=== PATIENT | male | born 1950 | race Caucasian/White ===

== ENCOUNTER → 2016-09-28 | Outpatient (CLI) | payer MEDICARE, OTHER ==
[~2016-09-28] VITALS: Ht 182.9 cm; Wt 99.8 kg
[~2016-09-28] MED LIST: REGADENOSON 0.4 MG/5 ML SYR (LEXISCAN) IV ONE
[2016-09-28] MEDS: CATHETER FLUSH 10 ML SYR IV PRN (08:31)
[2016-09-28 09:20] VITALS: BP 169/74
[2016-09-28] MEDS: REGADENOSON 0.4 MG/5 ML SYR (LEXISCAN) IV ONE (09:22)
[2016-09-28 09:23] VITALS: BP 156/74
[2016-09-28 09:25] VITALS: BP 182/75
[2016-09-28 09:27] VITALS: BP 173/82
--- NOTE | 2016-09-29 14:05 | STRESS TEST ---
PROCEDURE PHYSICIAN: LUPILLO GONZALES DATE OF PROCEDURE: 09/28/2016 RESTING AND POST REGADENOSON TECHNETIUM 99M TETROFOSMIN SPECT CT IMAGING: ORDERING PHYSICIAN: Dr. Uriel Avendano. PRIMARY PHYSICIAN: Dr. Faisal Kaufman. CLINICAL DIAGNOSES: Abnormal electrocardiogram. Baseline images were carried out after injection of 10.5 mCi of technetium 99m tetrofosmin. This was followed by 0.4 mg of regadenoson and 33 mCi of technetium 99m tetrofosmin for stress imaging. The electrocardiogram showed sinus rhythm with isolated premature ventricular contractions. The electrocardiogram did not change significantly with the regadenoson infusion. Following regadenoson infusion, the patient had some coughing and mild shortness of breath, which resolved in a few minutes. Review of images at rest and following stress, does not indicate any significant perfusion defects consistent with significant myocardial ischemia or infarction. Gated images show normal global left ventricular systolic function with normal regional wall motion. Left ventricular ejection fraction is calculated to be 58%. Left ventricular end-diastolic volume is 139 mL. TID is absent (1.15). CONCLUSIONS: 1. No evidence of significant myocardial ischemia or infarction on this study. 2. Normal regional wall motion. 3. Normal global left ventricular systolic function with a calculated ejection of 58%. 4. Mild to moderate cardiomegaly. Job ID: [id number] Dictated Date: 09/29/2016 13:01:16 Manager Of Administration Date: 09/29/2016 14:00:59 / wil
== END ==
LOC: CARD 08:14
PROVIDERS: ATTEND Internal Medicine Cardiovascular Disease
DX: I10 Essential (primary) hypertension (principal); R94.31 Abnormal electrocardiogram [ECG] [EKG]
CPT/HCPCS: 78452; 93017

== ENCOUNTER → 2016-10-11 | Outpatient (CLI) | payer MEDICARE, OTHER ==
[~2016-10-11] MED LIST changes: -REGADENOSON 0.4 MG/5 ML SYR (LEXISCAN) IV ONE; +RT-ALBUTEROL SULF 2.5 MG/3 ML PRE-MIX VIAL INH ONE
== END ==
LOC: RT 13:56
PROVIDERS: ATTEND Internal Medicine Critical Care Medicine
DX: J44.9 Chronic obstructive pulmonary disease, unspecified (principal); F17.200 Nicotine dependence, unspecified, uncomplicated
CPT/HCPCS: 94060; 94640; 94726; 94729

== ENCOUNTER 2016-10-17 13:00 | Outpatient (CLI) | payer MEDICARE, OTHER | END 2016-10-17 13:35 | disposition home or self-care (01) | LOC: SLEEP 13:00 | PROVIDERS: ATTEND Internal Medicine Critical Care Medicine | DX: G47.10 Hypersomnia, unspecified (principal); J44.9 Chronic obstructive pulmonary disease, unspecified; F17.200 Nicotine dependence, unspecified, uncomplicated ==

== ENCOUNTER → 2016-11-22 | Outpatient (CLI) | payer MEDICARE, OTHER ==
[~2016-11-22] MED LIST changes: +CATHETER FLUSH 10 ML SYR IV PRN; +IOHEXOL 350 MG/ML 100 ML (OMNIPAQUE 350) VIAL IV ONE; +NS 100 ML (IVPB) BAG IV ONE; -RT-ALBUTEROL SULF 2.5 MG/3 ML PRE-MIX VIAL INH ONE
[2016-11-22 09:17] LABS: BLOOD UREA NITROGEN 15 MG/DL (7-18); BUN/CREATININE RATIO 15; CREATININE SERUM 0.97 MG/DL (0.60-1.30); GFR ESTIMATED > 60
--- NOTE | 2016-11-22 11:45 | Diagnostic Imaging Report ---
EXAMINATION: CT angiogram of the neck. INDICATION: Stenosis of the left carotid artery. FINDINGS: There is a calcified plaque at the carotid bifurcation and a noncalcified plaque involving 1-2 cm of the proximal internal carotid artery on the left side associated with an estimated underlying stenosis of approximately 70-80% in the distal aspect of this plaque. More proximally, the left common carotid artery is patent to its common origin variation with the brachiocephalic artery. The left external carotid artery is patent. The brachiocephalic artery proper is patent. The right subclavian artery is patent. The right common carotid artery is also patent. There is calcified plaque at the carotid bifurcation with an estimated underlying stenosis of about 40%. The right external carotid artery is patent. The visualized portions of the proximal intracranial major vessels demonstrate no definite abnormality. The vertebral arteries are codominant with no significant stenosis. The soft tissue structures in the neck appear grossly unremarkable. No lymphadenopathy or mass is identified. Sections in the upper lungs demonstrate emphysematous changes. The osseous structures demonstrate generally mild degenerative changes with posterior osteophytes noted at the C6-7 level. IMPRESSION: 1. There is mixed plaque at the left proximal internal carotid artery with an underlying stenosis of up to 70-80%. 2. There is atherosclerotic plaque at the right internal carotid bifurcation with an underlying stenosis in the proximal right ICA up to 40%. The report was faxed to Victorina/SHWETA the office of Dr. Hall by VINCENT at 11:45 AM. Dictated by: Dictated on workstation # [id number]
== END ==
LOC: RAD 08:42
PROVIDERS: ATTEND Internal Medicine Cardiovascular Disease
DX: I65.23 Occlusion and stenosis of bilateral carotid arteries (principal)
CPT/HCPCS: 36415; 70498; 82565; 84520

== ENCOUNTER 2016-12-04 21:00 | Outpatient (CLI) | payer MEDICARE, OTHER | END 2016-12-05 06:34 | disposition home or self-care (01) | LOC: SLEEP 21:00 | PROVIDERS: ATTEND Internal Medicine Critical Care Medicine | DX: G47.33 Obstructive sleep apnea (adult) (pediatric) (principal) | CPT/HCPCS: 95810 ==

== ENCOUNTER 2017-10-16 09:21 | Outpatient (RCR) | payer MEDICARE, OTHER | END 2017-10-16 10:26 | disposition home or self-care (01) | PROVIDERS: ATTEND Orthopaedic Surgery | DX: M75.101 Unspecified rotator cuff tear or rupture of right shoulder, not specified as traumatic (principal) ==

== ENCOUNTER → 2017-10-27 | Outpatient (CLI) | payer MEDICARE, OTHER ==
--- NOTE | 2017-10-27 12:48 | Diagnostic Imaging Report ---
PROCEDURE: MRI right joint upper extremity without contrast. TECHNIQUE: Multiplanar, multisequence non contrast-enhanced MRI of the right upper extremity was accomplished. INDICATION: Chronic right shoulder pain. FINDINGS: There is [id number] amount of fluid within the right shoulder joint. There is marked narrowing of the glenohumeral joint space with diffuse articular cartilage thinning. In addition, there is a large subchondral cyst along the superior margin of the glenoid process with diffuse irregularity of the superior cartilaginous labrum with abnormal signal extending into the biceps anchor. Long head of biceps tendon appears to be intact. There are prominent osteophytes at the level of the acromioclavicular joint with subchondral cyst also present. Inferior spurring does result in impingement upon the underlying rotator cuff. There is mild increased T2 signal near the musculotendinous junction of the supraspinatus tendon without definite full thickness tear. No bone marrow signal is seen to indicate a fracture. IMPRESSION: Marked acromioclavicular and glenohumeral degenerative change with diffuse articular cartilage loss and probable diffuse degeneration of the superior cartilaginous labrum. In addition, osteophyte of the acromioclavicular joint result in narrowing of the rotator cuff space with probable chronic tendinitis or partial tear at the musculotendinous junction of supraspinatus muscle. No full-thickness rotator cuff tear or retraction is identified. Dictated by: Dictated on workstation # [id number]
== END ==
LOC: RAD 10:02
PROVIDERS: ATTEND Nurse Practitioner Family
DX: S46.011A Strain of muscle(s) and tendon(s) of the rotator cuff of right shoulder, initial encounter (principal); M19.011 Primary osteoarthritis, right shoulder; M94.8X1 Other specified disorders of cartilage, shoulder; M25.811 Other specified joint disorders, right shoulder
CPT/HCPCS: 73221

== ENCOUNTER → 2017-11-09 | Outpatient (CLI) | payer MEDICARE, OTHER ==
--- NOTE | 2017-11-09 10:03 | Diagnostic Imaging Report ---
PROCEDURE: US Doppler abd complete. TECHNIQUE: Spectral and color flow Doppler imaging was performed of the abdomen. INDICATION: Hypertension. FINDINGS: The right kidney measures 12.1 x 6.5 x 6.5 cm and left kidney measure 11.5 x 6.1 x 6.5 cm. The cortical thickness and echogenicity is normal. No calculi or hydronephrosis is identified. Renal Doppler was performed. Right proximal, mid and distal renal arteries demonstrate normal velocities. Renal artery to aorta ratios on the right are unremarkable. Waveforms are unremarkable. On the left, the proximal and mid renal artery is obscured. Distal renal artery shows normal velocity and normal ratio. Waveforms are unremarkable. Urinary bladder is unremarkable. IMPRESSION: Essentially unremarkable renal ultrasound with renal Doppler although the proximal and mid left renal artery was obscured. Dictated by: Dictated on workstation # [id number]
== END ==
LOC: RAD 08:42
PROVIDERS: ATTEND Physician Assistant
DX: I10 Essential (primary) hypertension (principal); G47.33 Obstructive sleep apnea (adult) (pediatric); I49.5 Sick sinus syndrome
CPT/HCPCS: 93975

== ENCOUNTER → 2018-04-23 | Outpatient (CLI) | payer MEDICARE, OTHER | LOC: LAB 09:17 | PROVIDERS: ATTEND Physician Assistant | DX: I10 Essential (primary) hypertension (principal); R06.00 Dyspnea, unspecified; G47.33 Obstructive sleep apnea (adult) (pediatric); I49.5 Sick sinus syndrome | CPT/HCPCS: 36415; 84443 ==

== ENCOUNTER 2018-04-30 08:12 | Outpatient (RCR) | payer MEDICARE, OTHER ==
[2018-06-12] MEDS ORDERED: MONT10TA24 PO (07:39)
[2018-06-12] MEDS ORDERED: GABA-488 PO (07:39)
[2018-06-12] MEDS ORDERED: LISI-552 PO (07:39)
[2018-06-12] MEDS ORDERED: MULT-974 PO (07:39)
[2018-06-12] MEDS ORDERED: LOSA100T8 PO (07:39)
[2018-06-12] MEDS ORDERED: TAMS0.4C2 PO (07:39)
[2018-06-12] MEDS ORDERED: CHLO25TA22 PO (07:39)
[2018-06-12] MEDS ORDERED: ATOR40TA70 PO (07:39)
[2018-06-13] MEDS ORDERED: CEFU500T63 PO (07:47)
[2018-07-03] MEDS ORDERED: APIX5TAB4 PO (07:42)
[2018-07-03] MEDS ORDERED: METO-387 PO (07:42)
[2018-07-03] MEDS ORDERED: MULT-1061 PO (07:42)
[2018-07-03] MEDS ORDERED: AMLO10TA6 PO (07:42)
[2018-07-03] MEDS ORDERED: NITR1PAT5 TD (09:17)
== END 2018-07-29 | disposition home or self-care (01) ==
LOC: CARD 08:12
PROVIDERS: ATTEND Physician Assistant
DX: I10 Essential (primary) hypertension (principal); R06.00 Dyspnea, unspecified; G47.33 Obstructive sleep apnea (adult) (pediatric); I49.5 Sick sinus syndrome
CPT/HCPCS: 93225; 93226

== ENCOUNTER → 2018-05-08 | Outpatient (CLI) | payer MEDICARE, OTHER ==
[~2018-05-08] MED LIST changes: -IOHEXOL 350 MG/ML 100 ML (OMNIPAQUE 350) VIAL IV ONE; -NS 100 ML (IVPB) BAG IV ONE; +REGADENOSON 0.4 MG/5 ML SYR (LEXISCAN) IV ONE
[2018-05-08 10:07] VITALS: BP 150/85
[2018-05-08 10:21] VITALS: BP 161/64
--- NOTE | 2018-05-09 07:20 | STRESS TEST ---
DATE OF SERVICE: 05/08/2018 EXERCISE AND LEXISCAN MYOVIEW STRESS TEST REPORT Baseline heart rate is 41. Baseline blood pressure is 150/85. Baseline EKG is sinus bradycardia with no ischemic changes. In summary, the patient was injected with 10.52 mCi of technetium-99 Myoview and the resting images were obtained. Then, the patient started exercising with a baseline heart rate, blood pressure and EKG mentioned above. After 4 minutes and 15 seconds, the patient was unable to exercise any further, achieved maximum heart rate of 106, which is submaximal stress test, test converted to Lexiscan Myoview stress test. The patient received 0.4 mg of Lexiscan followed by 27.4 mCi of technetium-99 Myoview. Throughout the test, there were no EKG changes. The resting and stress images were reviewed and compared in the short axis, horizontal long axis and vertical long axis views. Review of the images showed good radiotracer uptake with no significant ischemia or infarction on SPECT images. CONCLUSION: 1. Baseline sinus tachycardia, the patient was unable to achieve target heart rate with exercise, was able to exercise for 4 minutes and 15 seconds on James protocol. 2. The patient tolerated the Lexiscan well. 3. No significant ischemia or infarction on SPECT images. 4. Normal left ventricular size with normal contractility and calculated ejection fraction of 53%. Job ID: [id number] DocumentID: [id number] Dictated Date: 05/09/2018 06:43:27 Systems Security Analyst Date: 05/09/2018 07:20:45 Dictated By: HUA MARKS MD
== END ==
LOC: CARD 07:44
PROVIDERS: ATTEND Physician Assistant
DX: I49.5 Sick sinus syndrome (principal); R06.00 Dyspnea, unspecified; I10 Essential (primary) hypertension; G47.33 Obstructive sleep apnea (adult) (pediatric)
CPT/HCPCS: 78452; 93017

== ENCOUNTER → 2018-05-23 | Outpatient (CLI) | payer MEDICARE, OTHER | LOC: CARD 12:41 | PROVIDERS: ATTEND Physician Assistant | DX: R06.00 Dyspnea, unspecified (principal); I10 Essential (primary) hypertension; G47.33 Obstructive sleep apnea (adult) (pediatric); I49.5 Sick sinus syndrome; I08.1 Rheumatic disorders of both mitral and tricuspid valves | CPT/HCPCS: 93306 ==

== ENCOUNTER 2018-06-12 06:35 | Day surgery (SDC) | payer MEDICARE, OTHER ==
[2018-06-12] VITALS (13 sets, daily range): BP systolic 133–160; BP diastolic 68–95
[~2018-06-12] VITALS: Ht 182.9 cm; Wt 99.8 kg
[2018-06-12] MEDS ORDERED: LIDOCAINE 1% INJ 20 ML 20 ML VIAL ONE (06:46)
[2018-06-12] MEDS ORDERED: HEParin (CATH LAB) 1,000 ML IV ONE (06:46)
[2018-06-12] MEDS ORDERED: NS IV 1000 ML 1,000 ML IV ONE (06:46)
[2018-06-12] MEDS ORDERED: BACITRACIN INJECTION 50,000 UNIT, SODIUM CHLORIDE 0.9% IRRIGATIO 500 ML IR NR ×2 (07:07)
[2018-06-12 07:17] LABS: HEMOGLOBIN 16.2 G/DL (13.3-17.7); MEAN PLATELET VOLUME 10.1 FL (7.4-10.4); RED BLOOD COUNT 5.07 10^6/uL (4.35-5.85); RED CELL DISTRIBUTION WIDTH 13.9 % (10.0-14.5); WHITE BLOOD COUNT 8.9 10^3/uL (4.3-11.0)
[2018-06-12 07:34] LABS: ALBUMIN 4.4 GM/DL (3.2-4.5); BILIRUBIN,TOTAL 0.5 MG/DL (0.1-1.0); CALCIUM 9.3 MG/DL (8.5-10.1); CREATININE SERUM 1.21 MG/DL (0.60-1.30); POTASSIUM 3.8 MMOL/L (3.6-5.0); TOTAL PROTEIN 6.9 GM/DL (6.4-8.2)
--- NOTE | 2018-06-12 07:34 | Cardiac Procedure Note-CS/ASA ---
Pre-Procedure Note Pre-Op Procedure Note H&P Reviewed The H&P was reviewed, patient examined and no changes noted. Date H&P Reviewed: Jun 12, 2018 Time H&P Reviewed: 07:33 Conscious Sedation Pre-Proced ASA Score 3 For ASA 3 and 4: Consider anesthesia and medical clearance. Also, for patients with a history of failed moderate sedation consider anesthesia. Airway Lungs Heart ASA score ASA 1: a normal healthy patient ASA 2: a patient with a mild systemic disease (mid diabetes, controlled hypertension, obesity x ASA 3: a patient with a severe systemic disease that limits activity (angina , COPD, prior Myocardial infarction) ASA 4: a patient with an incapacitating disease that is a constant threat to life (CHF, renal failure) ASA 5: a moribund patient not expected to survive 24 hrs. (ruptured aneurysm) ASA 6: a declared brain patient whose organs are being harvested. For emergent operations, add the letter E after the classification Mallampati Classification Grade 3 Sedation Plan Analgesia, Amnesia, Plan communicated to team members, Discussed options with patient/fam, Discussed risks with patient/fam The patient is an appropriate candidate to undergo the planned procedure, sedation, and anesthesia. The patient immediately re-assessed prior to indication. HUA MARKS MD Jun 12, 2018 07:34
--- NOTE | 2018-06-12 07:35 | Diagnostic Imaging Report ---
Clinical indication: Precath for permanent pacemaker. Exam: Portable chest x-ray upright view. Comparisons: None. Findings: Lungs/pleura: There is mild left basilar atelectasis. Otherwise, lungs are clear. There is no pneumothorax. There is no pleural effusion. Mediastinum: Unremarkable. Pulmonary vasculature: Unremarkable. Heart: Cardiac silhouette is within normal limits for portable projection. Bones/extrathoracic soft tissue: There are degenerative spurs involving the thoracic spine. Impression: There is mild left basilar atelectasis. Otherwise, there is no radiographic evidence of acute cardiopulmonary process. Dictated by: Dictated on workstation # [id number]
[2018-06-12] MEDS ORDERED: ATOR40TA70 PO (07:39)
[2018-06-12] MEDS ORDERED: GABA-488 PO (07:39)
[2018-06-12] MEDS ORDERED: MONT10TA24 PO (07:39)
[2018-06-12] MEDS ORDERED: CHLO25TA22 PO (07:39)
[2018-06-12] MEDS ORDERED: TAMS0.4C2 PO (07:39)
[2018-06-12] MEDS ORDERED: MULT-974 PO (07:39)
[2018-06-12] MEDS ORDERED: LISI-552 PO (07:39)
[2018-06-12] MEDS ORDERED: LOSA100T8 PO (07:39)
[2018-06-12] MEDS ORDERED: MIDAZOLAM 5 MG/5 ML (VERSED) VIAL ONE (08:49)
[2018-06-12] MEDS ORDERED: fentaNYL INJECTION 100 MCG/2 ML AMP ONE ×2 (08:49→09:32)
[2018-06-12] MEDS ORDERED: ceFAZolin 1,000 MG/10 ML (ANCEF) VIAL ONE (08:49)
[2018-06-12] MEDS ORDERED: MIDAZOLAM 2 MG/2 ML (VERSED) VIAL ONE (09:32)
[2018-06-12] MEDS ORDERED: NEO/POLY/BAC (NEOSPORIN) OINT 15 GM TUBE ONE (10:28)
--- NOTE | 2018-06-12 10:38 | Permanent Pacemaker Implant ---
Dual Chamber Pacemaker Implant PROCEDURE PHYSICIAN: Hua Hall DUAL CHAMBER PACEMAKER IMPLANTATION: DATE OF PROCEDURE: 06/12/18 REFERRING PHYSICIAN: Dr. Faisal Kaufman INDICATION: PREOPERATIVE DIAGNOSIS: Sinus node dysfunction POSTOPERATIVE DIAGNOSIS: Sinus node dysfunction HISTORY: Sinus node dysfunction, 67 years old gentleman with history of sinus node dysfunction and bradycardia. Has been having dizziness and lightheadedness, Holter monitor showed episodes of bradycardia down to the 30s. Decided to proceed with dual-chamber pacemaker implant, Dual-chamber permanent pacemaker was recommended. PROCEDURE PERFORMED: 1. Dual-chamber permanent pacemaker implantation. 2. Fluoroscopy. 3. Central venous access. ANESTHESIA: Local anesthesia, conscious sedation. COMPLICATIONS: None. ESTIMATED BLOOD LOSS:20 mL. SPECIMENS: None. ORAL ANTICOAGULATION: None. FLUOROSCOPY TIME: 8.8 min FLUOROSCOPY DOSE: 67 mGy CONTRAST DOSE: 0 ml PROCEDURE DETAILS: The patient is a 67 male and after all of the patients questions were answered, the patient was brought to the EP Lab. The patient's left chest was prepped and draped in sterile fashion. A 2 inch horizontal incision was made 1 cm below the clavicle and dissection carried down to the pectoralis fascia. Using the modified Seldinger technique and under fluoroscopy guidance, the anterior aspect of the left axillary vein was accessed 2 times. The J wires were secured to the drapes with a mosquito clamp. A 7-[place] Island[place] sheath was introduced over one of the J-wires. The RV lead was then inserted. The RV lead was directed across the tricuspid valve to the apical septal portion of the right ventricle. The position was checked in SPANISH and BA views. The screw was deployed and the lead connected to the sas clinical programmer. Close sensing and pacing thresholds were obtained. Diaphragmatic pacing was ruled out. The lead was secured with 2-0 silk ties to the underlying muscle and fascia. Next, a 7-[place] Island[place] sheath was introduced through the remaining J-wire. An atrial lead was then introduced and guided to the level of the right appendage. The screw was deployed and the lead was connected to the interrogator. Good sensing and pacing thresholds were obtained. Diaphragmatic pacing was ruled out. I had to readjust the lead position 3 times due to the fact that operative removal of the stylet the sensitivity was dropping. After acquiring good sensing and capture activity at the end, The leads were secured with 2-0 silk ties to the underlying muscle and fascia. The leads were connected to the device in a hermetic fashion. The device and leads were placed in the pocket. Aggressive irrigation with saline solution was done. The device was secured to the underlying muscle and fascia with a 2-0 silk tie. interrogation of the device revealed good integrity of all the leads and good connections. The wound was then closed using 2 layers. The first layer was interrupted 2-0 absorbable Vicryl suture. The last layer was a single subcuticular layer with 4- 0 Vicryl suture. Half inch Steri-Strips and a small dressing were then applied to the wound. The patient tolerated the procedure well and was returned to the recovery room in stable condition with stable vital signs. DEVICE INFORMATION: AMENA GARCIA, SN# [id number] RA LEAD: [id number] RV LEAD: [id number] PER-OPERATIVE DEVICE INTERROGATION: Good sensing and capture IMMEDIATE POSTOPERATIVE DEVICE INTERROGATION: Stimulation threshold Right Atrium, bipolar, pulse width 0.5 ms, voltage 0.8, current 0, impedance 659 , P-wave 1.2 Right ventricle, bipolar, pulse width 0.5 ms, voltage 0.4, impedance 1040, R wave 7.9 PLAN: The patient transferred to the ICU. We will continue with two more doses of IV antibiotics. We will check a chest x-ray and interrogate the device in the morning. The patient will continue on oral antibiotics for 5 days. CONCLUSION: Successful dual-chamber pacemaker implantation with no complication FINAL DIAGNOSIS: Sinus node dysfunction Permanent pacemaker implant Hypertension Hyperlipidemia HUA HALL MD Jun 12, 2018 10:38
[2018-06-12] MEDS ORDERED: NS IV 1000 ML 1,000 ML IV SCH (10:40)
[2018-06-12] MEDS ORDERED: PATIENT MAY USE OWN MEDS, ALL PO SCH (10:45)
[2018-06-12] MEDS: LOSARTAN 100 MG (COZAAR) TABLET PO SCH (12:21)
[2018-06-12] MEDS: CHLORTHALIDONE 25 MG (HYGROTON) TABLET PO SCH (12:22)
[2018-06-12] MEDS: lisINopril 20 MG (PRINIVIL) TABLET PO SCH (12:22)
[2018-06-12] MEDS: GABAPENTIN 300 MG (NEURONTIN) CAP PO SCH ×2 (12:23→20:29)
[2018-06-12] MEDS: ceFAZolin INJECTION 1,000 MG in NS (IVPB) 50 ML IV SCH ×2 (12:23→21:43)
--- NOTE | 2018-06-12 13:05 | Diagnostic Imaging Report ---
INDICATION: Arrhythmia. Portable chest at 11:55 a.m. FINDINGS: There is a dual-chamber pacemaker. Heart size and pulmonary vascularity are normal. Lungs are clear. There are no effusions or pneumothoraces. IMPRESSION: No acute abnormalities in the chest. Dictated by: Dictated on workstation # [id number]
[2018-06-12] MEDS ORDERED: TAMSULOSIN 0.4 MG (FLOMAX) CAP PO SCH (18:00)
[2018-06-12] MEDS ORDERED: MONTELUKAST 10 MG (SINGULAIR) TAB PO SCH (21:00)
[2018-06-12] MEDS ORDERED: ATORVASTATIN 40 MG (LIPITOR) TABLET PO SCH (21:00)
[2018-06-13] VITALS: BP 157/79
[2018-06-13 04:34] VITALS: BP 153/84
[2018-06-13] MEDS: ceFAZolin INJECTION 1,000 MG in NS (IVPB) 50 ML IV SCH (05:30)
[2018-06-13] MEDS ORDERED: CEFU500T63 PO (07:47)
--- NOTE | 2018-06-13 07:50 | Cardiology Progress Note ---
Subjective Date Seen by Provider: Jun 13, 2018 Time Seen by Provider: 07:48 Subjective/Events-last exam Patient is feeling better, did not sleep well last night. Site is healing well , chest x-ray is normal Review of Systems General: No Chills, No Night Sweats, No Fatigue, No Malaise, No Appetite, No Other HEENT: No Head Aches, No Visual Changes, No Eye Pain, No Ear Pain, No Dysphasia , No Sinus Congestion, No Post Nasal Drip, No Sore Throat, No Other Pulmonary: No Dyspnea, No Cough, No Pleuritic Chest Pain, No Other Cardiovascular: No: Chest Pain, Palpitations, Orthopnea, Paroxysmal Noc. Dyspnea, Edema, Lt Headedness, Other Objective-Cardiology Exam Last Set of Vital Signs Vital Signs 06/13/18 04:34 Temp 97.1 Pulse 60 Resp 14 B/P (MAP) 153/84 (107) Pulse Ox 93 O2 Delivery Nasal Cannula O2 Flow Rate 2.00 Capillary Refill : I&O Intake and Output 06/13/18 00:00 Intake Total 1120 ml Balance 1120 ml Intake IV Total 1120 ml General: Alert, Oriented X3, Cooperative HEENT: Atraumatic, PERRLA Neck: Supple, No JVD, No Thyromegaly Lungs: Clear to Auscultation, Normal Air Movement Heart: Regular Rate, Normal S1, Normal S2, No Murmurs Abdomen: Normal Bowel Sounds, Soft, No Tenderness, No Hepatosplenomegaly, No Masses Extremities: No Clubbing, No Cyanosis, No Edema, Normal Pulses, No Tenderness/ Swelling Skin: No Rashes, No Breakdown, No Significant Lesion Neuro: Normal Gait, Normal Speech, Strength at 5/5 X4 Ext, Normal Tone, Sensation Intact Psych/Mental Status: Mental Status NL, Mood NL A/P-Cardiology Admission Diagnosis Sick sinus syndrome Cardiac pacemaker Dizziness and fatigue Hypertension Hyperlipidemia Assessment/Plan Sick sinus syndrome, severe bradycardia, symptomatic with fatigue and dizziness. Status post dual-chamber pacemaker implantation, no complication. Doing well. Generalized fatigue and loss of energy, probably secondary to bradycardia. Monitor Hypertension, restart home medication discharge Hyperlipidemia, continue on current medication Patient was started on Ceftin for 5 days HUA MARKS MD Jun 13, 2018 07:50
[2018-06-13 08:00] VITALS: BP 158/86
[2018-06-13] MEDS ORDERED: MULTIVIT W/MINERALS TAB (THERAGRAN M) PO SCH (08:00)
[2018-06-13] MEDS: lisINopril 20 MG (PRINIVIL) TABLET PO SCH (08:03)
[2018-06-13] MEDS: GABAPENTIN 300 MG (NEURONTIN) CAP PO SCH (08:03)
[2018-06-13] MEDS: LOSARTAN 100 MG (COZAAR) TABLET PO SCH (08:04)
[2018-06-13] MEDS: CHLORTHALIDONE 25 MG (HYGROTON) TABLET PO SCH (08:05)
[2018-06-13] MEDS ORDERED: NON-FORMULARY MEDICATION 1 EA EA (Chlorthalidone 25 MG) PO SCH (09:00)
[2018-06-13] MEDS ORDERED: LOSARTAN 100 MG (COZAAR) TABLET PO SCH (09:00)
[2018-06-13] MEDS ORDERED: MONTELUKAST 10 MG (SINGULAIR) TAB PO SCH (09:00)
== END 2018-06-13 09:47 | disposition home or self-care (01) ==
LOC: CATH 06:35 → ICU 11:20 → CATH 06-13 09:47
PROVIDERS: ATTEND Internal Medicine Cardiovascular Disease
DX: I49.5 Sick sinus syndrome (principal); I10 Essential (primary) hypertension; G47.33 Obstructive sleep apnea (adult) (pediatric); J44.9 Chronic obstructive pulmonary disease, unspecified; R06.09 Other forms of dyspnea; F17.210 Nicotine dependence, cigarettes, uncomplicated; Z82.49 Family history of ischemic heart disease and other diseases of the circulatory system; Z79.899 Other long term (current) drug therapy
CPT/HCPCS: 33208; 36415; 71045; 80053; 85027; 85610; 85730; 87081

== ENCOUNTER 2018-07-03 06:48 | Day surgery (SDC) | payer MEDICARE, OTHER ==
[~2018-07-03] VITALS: Ht 182.9 cm; Wt 99.8 kg
[2018-07-03] VITALS (10 sets, daily range): BP systolic 114–146; BP diastolic 62–79
[~2018-07-03 06:48] MED LIST changes: +ATOR40TA70 PO; -CATHETER FLUSH 10 ML SYR IV PRN; +CEFU500T63 PO; +CHLO25TA22 PO; +GABA-488 PO; +LISI-552 PO; +LOSA100T8 PO; +MONT10TA24 PO; +MULT-974 PO; -REGADENOSON 0.4 MG/5 ML SYR (LEXISCAN) IV ONE; +TAMS0.4C2 PO
[2018-07-03] MEDS ORDERED: LIDOCAINE 1% INJ 20 ML 20 ML VIAL ONE (06:55)
[2018-07-03] MEDS ORDERED: NS IV 1000 ML 1,000 ML ONE (06:55)
[2018-07-03] MEDS ORDERED: HEParin (CATH LAB) 2,000 ML IV ONE (06:55)
[2018-07-03] MEDS ORDERED: NS IV 1000 ML 1,000 ML IV SCH ×2 (07:00→09:03)
[2018-07-03 07:25] LABS: BILIRUBIN,URINE NEGATIVE (NEGATIVE); CLARITY,URINE CLEAR; COLOR,URINE YELLOW; GLUCOSE, URINE (UA) NEGATIVE (NEGATIVE); HEMOGLOBIN 16.9 G/DL (13.3-17.7); KETONES,URINE NEGATIVE (NEGATIVE); LEUKOCYTE ESTERASE ,URINE 1+ (NEGATIVE); MEAN PLATELET VOLUME 10.3 FL (7.4-10.4); NITRITE,URINE NEGATIVE (NEGATIVE); PH,URINE 6 (5-9); PROTEIN,URINE NEGATIVE (NEGATIVE); RED BLOOD COUNT 5.49 10^6/uL (4.35-5.85); RED CELL DISTRIBUTION WIDTH 13.8 % (10.0-14.5); UROBILINOGEN,URINE NORMAL (NORMAL); WHITE BLOOD COUNT 8.7 10^3/uL (4.3-11.0)
[2018-07-03 07:32] LABS: BACTERIA,URINE NEGATIVE /HPF; WBC,URINE 0-2 /HPF
[2018-07-03 07:39] LABS: PROTHROMBIN TIME PATIENT 12.7 SEC (12.2-14.7)
[2018-07-03] MEDS ORDERED: APIX5TAB4 PO (07:42)
[2018-07-03] MEDS ORDERED: MULT-1061 PO (07:42)
[2018-07-03] MEDS ORDERED: AMLO10TA6 PO (07:42)
[2018-07-03] MEDS ORDERED: METO-387 PO (07:42)
[2018-07-03] MEDS ORDERED: fentaNYL INJECTION 100 MCG/2 ML AMP ONE (07:45)
[2018-07-03] MEDS ORDERED: MIDAZOLAM 5 MG/5 ML (VERSED) VIAL ONE (07:45)
--- NOTE | 2018-07-03 08:05 | Cardiac Procedure Note-CS/ASA ---
Pre-Procedure Note Pre-Op Procedure Note H&P Reviewed The H&P was reviewed, patient examined and no changes noted. Date H&P Reviewed: Jul 03, 2018 Time H&P Reviewed: 08:05 Conscious Sedation Pre-Proced Time 08:05 ASA Score 3 For ASA 3 and 4: Consider anesthesia and medical clearance. Also, for patients with a history of failed moderate sedation consider anesthesia. Airway Lungs Heart ASA score ASA 1: a normal healthy patient ASA 2: a patient with a mild systemic disease (mid diabetes, controlled hypertension, obesity x ASA 3: a patient with a severe systemic disease that limits activity (angina , COPD, prior Myocardial infarction) ASA 4: a patient with an incapacitating disease that is a constant threat to life (CHF, renal failure) ASA 5: a moribund patient not expected to survive 24 hrs. (ruptured aneurysm) ASA 6: a declared brain patient whose organs are being harvested. For emergent operations, add the letter E after the classification Mallampati Classification Grade 3 Sedation Plan Analgesia, Amnesia, Plan communicated to team members, Discussed options with patient/fam, Discussed risks with patient/fam The patient is an appropriate candidate to undergo the planned procedure, sedation, and anesthesia. The patient immediately re-assessed prior to indication. HUA MARKS MD Jul 03, 2018 08:05
[2018-07-03 08:18] LABS: ALANINE AMINOTRANSFERASE 21 U/L (0-55); ALBUMIN 4.1 GM/DL (3.2-4.5); ALKALINE PHOSPHATASE 73 U/L (40-136); BILIRUBIN,TOTAL 0.3 MG/DL (0.1-1.0); BUN/CREATININE RATIO 18; CALCIUM 9.3 MG/DL (8.5-10.1); CARBON DIOXIDE 24 MMOL/L (21-32); CHLORIDE 106 MMOL/L (98-107); CHOLESTEROL 101 MG/DL (< 200); CREATININE SERUM 0.98 MG/DL (0.60-1.30); GFR ESTIMATED > 60; GLUCOSE 107 MG/DL (70-105); HDL CHOLESTEROL 35 MG/DL (40-60); SODIUM 139 MMOL/L (135-145); TOTAL PROTEIN 6.6 GM/DL (6.4-8.2); TRIGLYCERIDES 57 MG/DL (<150); VLDL CHOLESTEROL 11 MG/DL (5-40)
--- NOTE | 2018-07-03 08:38 | Diagnostic Imaging Report ---
INDICATION: Preop for heart catheterization. Time of exam 7:17 AM Correlation is made with prior study 06/12/2018. Heart size is stable. Cardiac pacemaker is in place. No infiltrate or failure is seen. No effusion or pneumothorax is identified. IMPRESSION: No acute cardiopulmonary process is detected. Dictated by: Dictated on workstation # [id number]
--- NOTE | 2018-07-03 09:07 | Discharge Inst-Post CATH ---
Discharge Inst-CATH Post Cardiac Cath D/C Inst Follow Up/Plan Appointment with Dr Hall's office in 2-4 weeks CARDIAC CATH DISCHARGE INSTRUCTIONS *Hold Metformin for 48 hours post heart cath. ACTIVITY * Go Home directly and rest. * Limit activity of the leg (or wrist if it was used) for 7 days including aerobics, swimming, jogging, bicycling, etc. * Restrict stair-climbing for 7 days if possible, if not, climb up with your non -cath leg, then bring together on the same step. * Avoid lifting, pushing, pulling or excessive movement of the affected extremity for 7 days. * Customary sexual activity may be resumed after 2 days-use caution not to use a position that strains or causes pain to the affected extremity. * No driving for 24 hours. * NO SMOKING. * Avoid straining for bowel movements for 7 days. * Gentle walking on level ground is allowed. * Returning to work will depend on the type of procedure and the results. Your doctor will discuss this with you. CALL YOUR DOCTOR FOR ANY OF THE FOLLOWING: *If bleeding from the puncture site occurs- Apply gentle pressure to site with clean cloth and call your doctor or EMS. * If a knot or lump forms under the skin, increases in size, or causes pain. * If bruising appears to be worsening or moving further down your leg instead of disappearing. * Temperature above 101 F. CARE OF YOUR GROIN INCISION; * Bruising or purple discoloration of the skin near the puncture site is common. * You may shower only, no bathtub bathing for 5 days. Be careful to avoid slipping as your leg may feel stiff. * If a closure device was used on your femoral artery, please see the attached guide regarding care of the device and your leg. * Leave the dressing on, until removed by office staff. CARE OF YOUR WRIST INCISION; * Bruising or purple discoloration of the skin near the puncture site is common. * You may shower. * DO NOT submerge wrist. * Leave dressing on, until removed by office staff.. HUA HALL MD Jul 03, 2018 09:07
--- NOTE | 2018-07-03 09:13 | Cardiac Cath Report ---
Cardiac Cath Report Physician (s)/Scheduling Manager (s) Physician HUA MARKS MD Pre-Procedure Diagnosis Pre-Procedure Diagnosis: coronary artery disease Post-Procedure Note Procedure Start Date: Jul 03, 2018 Name of Procedure: left heart catheterization Left ventriculogram Aortic arch angiogram Findings/Procedure Note PROCEDURE NOTE: After explaining the procedure to the patient, all pros and cons were explained , all questions were answered. The patient signed the consent and then he was placed on the cardiac catheterization laboratory. Groin was prepped SL fashion local anesthesia was used. Sheath placed in the right femoral artery. Aguila right and left catheter were used to access the coronary system. Pigtail was used to access the left ventricular cavity. Left ventriculogram was done Aortic arch angiogram was done At the end of the procedure the sheath was removed. Closure device was used FINDINGS: Hemodynamics LV 111/7, end-diastolic pressure of 7 Aorta 100/48 mean of 73 ANATOMY: Left Main is almost absent, almost separate origin of the LAD and circumflex artery Left Anterior Descending is moderate in size with mild disease at the midportion nonobstructive disease Left Circumflex is moderate in size, calcified at the ostium with eccentric plaque, does not appear to be obstructive, mild to moderate disease at the midportion. Right Coronory Artery has mild disease nonobstructive disease LV Gram was done in the right anterior oblique position, left ventricle is normal in size with normal contraction. Estimated ejection fraction 60 percent Aorta evaluation done with aortic arch angiogram which showed mild hypertensive changes, consultation at the origin of the right innominate artery, there is mild tortuosity of the left carotid artery and left subclavian artery, nonobstructive disease CONCLUSION: 1. Calcified ostial circumflex artery with eccentric plaque, does not appear to be obstructive disease. Mild disease at the midportion 2. Mild disease at the mid LAD and right coronary artery nonobstructive disease 3. Normal left ventricular size and systolic function estimated ejection fraction 60 percent 4. Normal aortic arch and great neck vessels, mild calcification at the origin of the right innominate artery DISCUSSION AND RECOMMENDATION: Continue to maximize medical therapy. Monitor as an outpatient, if patient continued to be symptomatic we'll consider referral for evaluation for the ostial circumflex artery with IVUS and possible intervention Anesthesia Type: Conscious Sedation Estimated blood loss (mL): 15 ml Contrast Amount: 71 ml Total Radiation Dose: 555 mGy Post-Procedure Diagnosis Post-operative diagnosis: chest pain nonspecific etiology Coronary artery disease Hypertension Hyperlipidemia HUA MARKS MD Jul 03, 2018 09:13
[2018-07-03] MEDS ORDERED: PATIENT MAY USE OWN MEDS, ALL PO SCH (09:15)
[2018-07-03] MEDS ORDERED: NITR1PAT5 TD (09:17)
== END 2018-07-03 13:30 | disposition home or self-care (01) ==
LOC: CATH 06:48 → 4TH 09:30 → CATH 13:30
PROVIDERS: ATTEND Internal Medicine Cardiovascular Disease
DX: R07.89 Other chest pain (principal); I25.10 Atherosclerotic heart disease of native coronary artery without angina pectoris; I48.0 Paroxysmal atrial fibrillation; I49.5 Sick sinus syndrome; I10 Essential (primary) hypertension; E78.5 Hyperlipidemia, unspecified; R06.00 Dyspnea, unspecified; G47.33 Obstructive sleep apnea (adult) (pediatric); J45.909 Unspecified asthma, uncomplicated; F17.210 Nicotine dependence, cigarettes, uncomplicated; Z95.0 Presence of cardiac pacemaker; Z79.01 Long term (current) use of anticoagulants; Z79.899 Other long term (current) drug therapy
CPT/HCPCS: 36221; 36415; 71045; 80053; 80061; 81000; 84484; 85027; 85610; 85730; 87081; 93005; 93458

== ENCOUNTER → 2018-12-20 | Outpatient (CLI) | payer MEDICARE, OTHER ==
[~2018-12-20] MED LIST changes: +AMLO10TA7 PO; +APIX5TAB4 PO; +LOSA100T57 PO; -LOSA100T8 PO; +METO-387 PO; +MULT-1061 PO; +NITR1PAT5 TD
--- NOTE | 2018-12-20 17:10 | Diagnostic Imaging Report ---
INDICATION: A [id number] smoking history for low-dose annual CT screening. This is a baseline study. TECHNIQUE: Protocol low-dose noncontrasted axial CT chest performed with sagittal and coronal reconstructions. FINDINGS: A right middle lobe nodule partly solid measures 4.9 mm, image 140 series 2. There is bilateral air trapping with centrilobular emphysematous pattern with cyst formation greatest in the apices. There is a tiny juxtapleural nodule at the left apex measuring 4.6 mm. No thoracic adenopathy. The aorta is nonaneurysmal. There is a pacemaker device present with no thoracic effusion. Partially visualized upper abdomen appears nonacute. This patient has a small hiatal hernia. IMPRESSION: Benign-appearing nodules of just less than 5 mm bilaterally found at baseline study. Low-dose CT follow-up in 12 months is recommended per Fleischner criteria. LUNG-RADS CATEGORY: 2 - Benign appearance or behavior. Solid nodule(s): <6mm OR new <4mm. Continue annual screening with LDCT in 12 months. OTHER SIGNIFICANT FINDINGS: Centrilobular emphysema with nonaneurysmal atherosclerosis. Dictated by: Dictated on workstation # [id number]
== END ==
LOC: RAD 11:58
PROVIDERS: ATTEND Nurse Practitioner Family
DX: Z12.2 Encounter for screening for malignant neoplasm of respiratory organs (principal); J44.9 Chronic obstructive pulmonary disease, unspecified; G47.33 Obstructive sleep apnea (adult) (pediatric); G47.50 Parasomnia, unspecified; J30.2 Other seasonal allergic rhinitis; R91.8 Other nonspecific abnormal finding of lung field; F17.210 Nicotine dependence, cigarettes, uncomplicated

== ENCOUNTER → 2019-01-15 | Outpatient (CLI) | payer MEDICARE, OTHER ==
[~2019-01-15] MED LIST changes: +RT-ALBUTEROL SULF 2.5 MG/3 ML PRE-MIX VIAL INH ONE; +RT-ALBUTEROL SULF 2.5 MG/3 ML PRE-MIX VIAL ONE
== END ==
LOC: RT 08:02
PROVIDERS: ATTEND Nurse Practitioner Family
DX: J44.9 Chronic obstructive pulmonary disease, unspecified (principal); J30.9 Allergic rhinitis, unspecified; G47.33 Obstructive sleep apnea (adult) (pediatric); G47.50 Parasomnia, unspecified; R53.83 Other fatigue; R09.02 Hypoxemia; Z72.0 Tobacco use
CPT/HCPCS: 94060; 94726; 94729

== ENCOUNTER → 2019-07-07 | Outpatient (CLI) | payer MEDICARE, OTHER ==
[~2019-07-07] MED LIST changes: +HOLD METFORMIN - RECEIVED CONTRAST 20 ML VIAL IV SCH; +IOHEXOL 350 MG/ML 100 ML (OMNIPAQUE 350) VIAL IV ONE; -METO-387 PO; +MTP25TSR PO; -NITR1PAT5 TD; +NITR1PAT81 TD; +NS 100 ML (IVPB) BAG IV ONE; -RT-ALBUTEROL SULF 2.5 MG/3 ML PRE-MIX VIAL INH ONE; -RT-ALBUTEROL SULF 2.5 MG/3 ML PRE-MIX VIAL ONE
[2019-07-07 08:44] LABS: BUN/CREATININE RATIO 19; CREATININE SERUM 1.13 MG/DL (0.60-1.30); GFR ESTIMATED > 60
--- NOTE | 2019-07-07 09:37 | Diagnostic Imaging Report ---
EXAMINATION: CT Chest with intravenous contrast. TECHNIQUE: Multiple contiguous axial images were obtained through the chest after the uneventful administration of intravenous contrast. All CT scans use one or more of the following dose optimizing techniques: automated exposure control, MA and/or KvP adjustment based on a patient size and exam type, or iterative reconstruction. HISTORY: ASTHMA,FATIGUE,SHOLA,HYPOXEMIA,TOBACCO USER COMPARISON: None available. FINDINGS: Lungs are severely emphysematous. There is no edema or pneumonia. Pacemaker is present. No pleural effusion or pneumothorax. There is a stable 4 mm fissural nodule along the right minor fissure. No new or suspicious nodules are seen. Left ventricle is dilated. There are moderate coronary artery calcifications. No pericardial effusion. Aorta is normal in caliber. There is no axillary or supraclavicular lymphadenopathy. There is no mediastinal lymphadenopathy. Limited views of the upper abdomen are unremarkable. There are no suspicious osseus lesions. IMPRESSION: 1. Severely emphysematous lungs without edema or pneumonia. Dictated by: Dictated on workstation # [id number]
== END ==
LOC: RAD 08:12
PROVIDERS: ATTEND Nurse Practitioner Family
DX: J43.9 Emphysema, unspecified (principal); R53.83 Other fatigue; R09.02 Hypoxemia; G47.33 Obstructive sleep apnea (adult) (pediatric); R91.8 Other nonspecific abnormal finding of lung field; G47.50 Parasomnia, unspecified; J30.2 Other seasonal allergic rhinitis; Z72.0 Tobacco use
CPT/HCPCS: 36415; 71260; 82565; 84520

== ENCOUNTER → 2020-02-26 | Outpatient (CLI) | payer MEDICARE, OTHER ==
[~2020-02-26] MED LIST changes: -HOLD METFORMIN - RECEIVED CONTRAST 20 ML VIAL IV SCH; -IOHEXOL 350 MG/ML 100 ML (OMNIPAQUE 350) VIAL IV ONE; -MONT10TA24 PO; +MONT10TA26 PO; -NS 100 ML (IVPB) BAG IV ONE
== END ==
LOC: CARD 09:30
PROVIDERS: ATTEND Internal Medicine Cardiovascular Disease
DX: I25.10 Atherosclerotic heart disease of native coronary artery without angina pectoris (principal); R06.09 Other forms of dyspnea; I48.0 Paroxysmal atrial fibrillation; I49.5 Sick sinus syndrome; F17.200 Nicotine dependence, unspecified, uncomplicated
CPT/HCPCS: 93306

== ENCOUNTER → 2020-07-16 | Outpatient (CLI) | payer MEDICARE, OTHER ==
[~2020-07-16] MED LIST changes: +AMLO-251 PO; -AMLO10TA7 PO; -MONT10TA26 PO; +MONT10TA97 PO
--- NOTE | 2020-07-16 08:41 | Diagnostic Imaging Report ---
EXAMINATION: CT Chest without contrast (lung screening). TECHNIQUE: Multiple contiguous axial images were obtained through the chest without the use of intravenous contrast according to lung cancer screening protocol. All CT scans use one or more of the following dose optimizing techniques: automated exposure control, MA and/or KvP adjustment based on a patient size and exam type, or iterative reconstruction. HISTORY: 54 pack year history of smoking. COMPARISON: 12/20/2018 FINDINGS: There is no edema or pneumonia. No pleural effusion. No pneumothorax. There is a stable 6 mm right middle lobe pulmonary nodule. Lungs are severely emphysematous. There is no axillary or supraclavicular lymphadenopathy. There is no mediastinal lymphadenopathy. Heart size is normal. There are moderate coronary artery calcifications. No pericardial effusion. Aorta is normal in caliber. Pacemaker is present. Limited views of the upper abdomen are unremarkable. There are no suspicious osseus lesions. IMPRESSION: 1. No suspicious pulmonary nodules. LUNG-RADS CATEGORY: 2 MODIFIER: None. Dictated by: Dictated on workstation # [id number]
== END ==
LOC: RAD 07:45
PROVIDERS: ATTEND Nurse Practitioner Family
DX: Z12.2 Encounter for screening for malignant neoplasm of respiratory organs (principal); J44.9 Chronic obstructive pulmonary disease, unspecified; F17.210 Nicotine dependence, cigarettes, uncomplicated

== ENCOUNTER → 2022-02-28 | Outpatient (CLI) | payer MEDICARE, OTHER ==
[~2022-02-28] MED LIST changes: -LISI-552 PO; +LISI20TA26 PO; +MONT-40 PO; -MONT10TA97 PO
== END ==
LOC: CARD 09:30
PROVIDERS: ATTEND Physician Assistant
DX: I11.9 Hypertensive heart disease without heart failure (principal)
CPT/HCPCS: 93306

== ENCOUNTER → 2022-09-20 | Outpatient (CLI) | payer MEDICARE, OTHER ==
[~2022-09-20] VITALS: Ht 182 cm; Wt 86.0 kg
[~2022-09-20] MED LIST changes: +CATHETER FLUSH 10 ML SYR IVP PRN; +REGADENOSON 0.4 MG/5 ML SYR (LEXISCAN) IV ONE
[2022-09-20 08:57] VITALS: BP 147/82
--- NOTE | 2022-09-20 14:53 | Cardiology Stress Test Report ---
Stress Test Report Date of Procedure/Referring: Date of Procedure: Sep 20, 2022 PCP Faisal Kaufman DO Admitting Physician Admitting Physician: Attending Physician: Iman Trujillo Indications: a fib Baseline Heart Rate: 63 Baseline Blood Pressure: Blood Pressure Systolic: 147 Blood Pressure Diastolic: 82 Baseline Vitals Vital Signs Date Time Temp Pulse Resp B/P (MAP) Pulse Ox O2 Delivery O2 Flow Rate FiO2 09/20/22 08:57 60 17 147/82 (103) 97 Room Air Baseline EKG: Baseline EKG: NSR Summary After explaining the procedure to the patient, he signed a consent and then brought to the stress nuclear laboratory. Patient received 0.4 mg Lexiscan for stress test, ECG, heart rate and blood pressure were monitored continuously. Resting and stress dose of radio tracer were injected, imaging was acquired and reviewed in short axis, horizontal long axis and vertical long axis views. TID: 0.96 SSS: 6 SDS: 5 EF: 57 Patient tolerated Lexiscan well Reversible ischemia involving the mid to apical inferior wall Normal left ventricular size, EF 57% Copy Copies To 1: FAISAL KAUFMAN BASHAR J MD Sep 20, 2022 14:53
== END ==
LOC: CARD 07:45
PROVIDERS: ATTEND Physician Assistant
DX: I48.0 Paroxysmal atrial fibrillation (principal)
CPT/HCPCS: 78452; 93017; A9502

== ENCOUNTER 2022-09-27 07:48 | Day surgery (SDC) | payer MEDICARE, OTHER ==
[2022-09-27] VITALS (10 sets, daily range): BP systolic 133–165; BP diastolic 69–84
[~2022-09-27] VITALS: Ht 182.9 cm; Wt 89.5 kg
[~2022-09-27 07:48] MED LIST changes: -CATHETER FLUSH 10 ML SYR IVP PRN; -REGADENOSON 0.4 MG/5 ML SYR (LEXISCAN) IV ONE
[2022-09-27] MEDS ORDERED: LIDOCAINE 1% INJ 20 ML VIAL ONE (07:58)
[2022-09-27] MEDS ORDERED: HEParin (CATH LAB) 2,000 ML IV ONE (07:58)
[2022-09-27] MEDS ORDERED: NS IV 1000 ML 1,000 ML ONE (07:58)
[2022-09-27] MEDS ORDERED: NS IV 1000 ML 1,000 ML IV SCH ×2 (08:00→10:15)
--- NOTE | 2022-09-27 08:40 | Diagnostic Imaging Report ---
EXAMINATION: Chest 1 view HISTORY: Coronary artery disease COMPARISON: 07/03/2018 FINDINGS: Median sternotomy wires are aligned. There are coronary artery bypass graft markers. Left subclavian pacemaker is present. No edema or pneumonia. No pleural effusion or pneumothorax. Heart size is normal. IMPRESSION: 1. Clear lungs. Dictated by: Dictated on workstation # [id number]
[2022-09-27 08:42] LABS: HEMATOCRIT 47 % (40-54); MEAN CORPUSCULAR HEMOGLOBIN 30 pg (25-34); MEAN CORPUSCULAR HGB CONC 34 g/dL (32-36); MEAN CORPUSCULAR VOLUME 89 fL (80-99); MEAN PLATELET VOLUME 9.4 fL (9.0-12.2); PLATELET COUNT 246 10^3/uL (130-400)
[2022-09-27 08:55] LABS: INR 1.3 (0.8-1.4); PROTHROMBIN TIME PATIENT 16.3 SEC (12.2-14.7)
[2022-09-27] MEDS ORDERED: GABA300C PO (08:58)
[2022-09-27] MEDS ORDERED: UMEC1BLS IH (08:58)
[2022-09-27] MEDS ORDERED: MONT-40 PO (08:58)
[2022-09-27] MEDS ORDERED: AMIO200T65 PO (08:58)
[2022-09-27] MEDS ORDERED: RIVA20TA PO (08:58)
[2022-09-27] MEDS ORDERED: CARV12.53 PO (08:58)
[2022-09-27] MEDS ORDERED: ATOR20TA66 PO (08:58)
[2022-09-27] MEDS ORDERED: MULT-1136 PO (08:58)
[2022-09-27] MEDS ORDERED: LOSA25TA41 PO (08:58)
[2022-09-27] MEDS ORDERED: RT-ALBUINH INH (08:58)
[2022-09-27] MEDS ORDERED: GLUC-219 PO (08:58)
[2022-09-27] MEDS ORDERED: AMLO-251 PO (08:58)
[2022-09-27 09:05] LABS: ALBUMIN 4.1 GM/DL (3.2-4.5); BILIRUBIN,TOTAL 0.3 MG/DL (0.1-1.0); CALCIUM 9.4 MG/DL (8.5-10.1); CREATININE SERUM 0.93 MG/DL (0.60-1.30); POTASSIUM 4.4 MMOL/L (3.6-5.0); TOTAL PROTEIN 7.2 GM/DL (6.4-8.2)
[2022-09-27] MEDS ORDERED: fentaNYL INJ 100 MCG/2 ML AMP ONE (09:18)
[2022-09-27] MEDS ORDERED: MIDAZOLAM 5 MG/5 ML (VERSED) VIAL ONE (09:18)
--- NOTE | 2022-09-27 09:28 | Cardiac Procedure Note-CS/ASA ---
Pre-Procedure Note Pre-Op Procedure Note Date of Available H&P: Sep 21, 2022 Date H&P Reviewed: Sep 27, 2022 Time H&P Reviewed: History & Physical: H&P Reviewed, Patient Examed, No changes noted Pre-Operative Diagnosis: coronary artery disease Conscious Sedation Pre-Proced Time ASA Score 3 For ASA 3 and 4: Consider anesthesia and medical clearance. Also, for patients with a history of failed moderate sedation consider anesthesia. Airway Lungs Heart ASA score ASA 1: a normal healthy patient ASA 2: a patient with a mild systemic disease (mid diabetes, controlled hypertension, obesity ASA 3: a patient with a severe systemic disease that limits activity (angina, COPD, prior Myocardial infarction) ASA 4: a patient with an incapacitating disease that is a constant threat to life (CHF, renal failure) ASA 5: a moribund patient not expected to survive 24 hrs. (ruptured aneurysm) ASA 6: a declared brain- patient whose organs are being harvested. For emergent operations, add the letter E after the classification Mallampati Classification Grade 3 Sedation Plan Analgesia, Amnesia, Plan communicated to team members, Discussed options with patient/fam, Discussed risks with patient/fam The patient is an appropriate candidate to undergo the planned procedure, sedation, and anesthesia. The patient immediately re-assessed prior to indication. HUA MARKS MD Sep 27, 2022 09:28
--- NOTE | 2022-09-27 10:10 | Discharge Inst-Post CATH ---
Discharge Inst-CATH/EP Problems Reviewed?: Yes Post Cardiac Cath/EP D/C Inst Follow Up/Plan Appointment with Dr. Hall's office in 2 to 4 weeks <b>CARDIAC CATH/EP PROCEDURE DISCHARGE INSTRUCTIONS</b> ACTIVITY * Go Home directly and rest. * Limit activity of the leg (or wrist if it was used) for 7 days including aer obics, swimming, jogging, bicycling, etc. * Restrict stair-climbing for 7 days if possible, if not, climb up with your non-cath leg, then bring together on the same step. * Avoid lifting, pushing, pulling or excessive movement of the affected extremi ty for 7 days. * Customary sexual activity may be resumed after 2 days-use caution not to use a position that strains or causes pain to the affected extremity. * No driving for 24 hours. * NO SMOKING. * Avoid straining for bowel movements for 7 days. * Gentle walking on level ground is allowed. * Returning to work will depend on the type of procedure and the results. Your doctor will discuss this with you. CALL YOUR DOCTOR FOR ANY OF THE FOLLOWING: *If bleeding from the puncture site occurs- Apply gentle pressure to site with clean cloth and call your doctor or EMS. * If a knot or lump forms under the skin, increases in size, or causes pain. * If bruising appears to be worsening or moving further down your leg instead of disappearing. * Temperature above 101 F. CARE OF YOUR GROIN INCISION; * Bruising or purple discoloration of the skin near the puncture site is common. * You may shower only, no bathtub bathing for 5 days. Be careful to avoid slipping as your leg may feel stiff. * If a closure device was used on your femoral artery, please see the attached guide regarding care of the device and your leg. * Leave dressing on FOR 24 hours. CARE OF YOUR WRIST INCISION; * Bruising or purple discoloration of the skin near the puncture site is common. * You may shower. * DO NOT submerge wrist. * Leave dressing on FOR 24 hours. HUA HALL MD Sep 27, 2022 10:10
[2022-09-27] MEDS ORDERED: PATIENT MAY USE OWN MEDS, ALL PO SCH (10:15)
--- NOTE | 2022-09-27 10:15 | Cardiac Cath Report ---
Cardiac Cath Report Physician (s)/Chyron Operator (s) Physician HUA MARKS MD Pre-Procedure Diagnosis Pre-Procedure Diagnosis: coronary artery disease Post-Procedure Note Procedure Start Date: Sep 27, 2022 Name of Procedure: Left heart catheterization Vein graft angiogram STEVENSON angiogram Abdominal aortogram Findings/Procedure Note PROCEDURE NOTE: 71 years old gentleman with history of coronary artery disease, CABG, had an abnormal stress test, scheduled for cardiac catheterization possible PTCA After explaining the procedure to the patient, all pros and cons were explained, all questions were answered. The patient signed the consent and then he was placed on the cardiac catheterization laboratory. Groin was prepped SL fashion local anesthesia was used. Sheath placed in the right femoral artery artery. Aguila right and left catheter were used to access the coronary system.Vein Graft evaluated. STEVENSON evaluated. Pigtail was used to access the left ventricular cavity. I had difficulty advancing the J-wire through the right iliac artery, I used a Storq catheter, did angiogram to the right iliac artery using Aguila right catheter and used exchange catheter. Pigtail was pulled to the abdominal aorta and did abdominal aortogram then pulled down to the bifurcation and did angiogram at the bifurcation Left ventriculogram was not done At the end of the procedure the sheath was removed. Closure device was deployed FINDINGS: Hemodynamics LV 113/8, end-diastolic pressure of 8 Aorta 112/52 mean of 76 ANATOMY: Left Main is free of obstructive disease Left Anterior Descending is occluded distally with competitive flow from the STEVENSON and vein graft, good flow in the distal, small vessel disease at the distal LAD Left Circumflex is occluded, competitive flow through the vein graft with excellent flow distally Right Coronary Artery is dominant artery with mild disease nonobstructive diseas e STEVENSON to LAD is patent, small vessel disease in the distal LAD Vein Graft evaluation showed 2 markers The lower vein graft is vein graft to the diagonal artery with excellent flow in the diagonal artery and the retrograde filling the LAD The upper vein graft is a jump graft to OM1 and OM 2 with excellent flow distally LV Gram was not done, pressure was measured Aorta evaluation was done with abdominal aortogram, the abdominal aorta has diffuse atherosclerotic plaque, small infrarenal abdominal aortic aneurysm with fibromuscular hyperplasia in the right common iliac artery, the renal arteries are normal, superior and inferior mesenteric arteries are normal CONCLUSION: Severe [place] left coronary system with patent STEVENSON to LAD, vein graft to diagonal artery and vein graft/jump graft to OM1 and OM 2 with small vessel disease at the distal LAD Dominant right coronary artery with mild disease nonobstructive disease Small infrarenal abdominal aortic aneurysm 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
== END 2022-09-27 14:30 | disposition home or self-care (01) ==
LOC: CATH 07:48 → SDC 10:24 → CATH 14:30
PROVIDERS: ATTEND Internal Medicine Cardiovascular Disease
DX: I25.10 Atherosclerotic heart disease of native coronary artery without angina pectoris (principal); I10 Essential (primary) hypertension; I73.9 Peripheral vascular disease, unspecified; I71.43 Infrarenal abdominal aortic aneurysm, without rupture; I77.3 Arterial fibromuscular dysplasia; E78.5 Hyperlipidemia, unspecified; I49.5 Sick sinus syndrome; I48.0 Paroxysmal atrial fibrillation; G47.33 Obstructive sleep apnea (adult) (pediatric); I65.23 Occlusion and stenosis of bilateral carotid arteries; E78.2 Mixed hyperlipidemia; F17.210 Nicotine dependence, cigarettes, uncomplicated; Z79.899 Other long term (current) drug therapy; Z99.81 Dependence on supplemental oxygen
CPT/HCPCS: 71045; 75625; 80053; 85027; 85610; 85730; 87081; 93005; 93459; C1760; C1769; C1894; 36415

== ENCOUNTER → 2022-12-18 | Outpatient (CLI) | payer MEDICARE, OTHER ==
[~2022-12-18] MED LIST changes: +AMIO200T65 PO; +ATOR20TA66 PO; +CARV12.53 PO; +GABA300C PO; +GLUC-219 PO; +LOSA25TA41 PO; +MULT-1136 PO; +RIVA20TA PO; +RT-ALBUINH INH; +RT-ALBUTEROL SULF 2.5 MG/3 ML PRE-MIX VIAL INH ONE; +UMEC1BLS IH
== END ==
LOC: RT 07:35
PROVIDERS: ATTEND Internal Medicine Critical Care Medicine
DX: J44.9 Chronic obstructive pulmonary disease, unspecified (principal); G47.33 Obstructive sleep apnea (adult) (pediatric); Z87.891 Personal history of nicotine dependence
CPT/HCPCS: 94060; 94726; 94729